=== PATIENT | female | born 1995 | race Caucasian/White ===

== ENCOUNTER → 2018-06-16 | Outpatient (CLI) | payer OTHER ==
--- NOTE | 2018-06-16 14:50 | RADIOLOGY IMAGING REPORT ---
FACILITY: [facility] PATIENT NAME: Gracie Uriarte : 1995 MR: [id number] V: [id number] EXAM DATE: ORDERING PHYSICIAN: PASHA GARCIA TECHNOLOGIST: [place] [facility] [place]: Gracie Uriarte : 1995 Visit/Account:[id number] Date of Sevice: 06/16/2018 KNEE LIMITED LEFT COMPARISON: None. HISTORY: Chronic left knee pain, no known trauma TECHNIQUE: AP and lateral views with weightbearing technique FINDINGS: BONES: No significant arthropathy, fracture, malalignment, or significant osseous lesion. SOFT TISSUES: Negative. No visible soft tissue swelling. EFFUSION: None suggested. OTHER: Negative. IMPRESSION: Normal radiographic appearance of the left knee. No cause for pain identified. Report Dictated By: Zac Melendez at 06/16/2018 2:45 PM Report E-Signed By: Zac Melenedz at 06/16/2018 2:46 PM WSN:[email or web address]
== END ==
LOC: RAD 14:08
PROVIDERS: ATTEND Nurse Practitioner Family
DX: M25.562 Pain in left knee (principal)